=== PATIENT | male | born 1970 | race Caucasian/White ===

== ENCOUNTER 2019-12-16 10:21 | Inpatient (IN) | payer BC, SELFPAY ==
[~2019-12-16] VITALS: Ht 170.2 cm; Wt 97.5 kg
[2019-12-16 10:24] VITALS: Ht 170.2 cm; Wt 97.5 kg
--- NOTE | 2019-12-16 10:48 | NUR ---
PATIENT ARRIVED FROM THE CLINIC VIA AMBULANCE FOR SOB FOR A WEEK. NO COUGHING, TACHYPNEIC AND BREATH SOUNDS CLEAR. PATIENT ARRIVED WITH O2 VIA NC AT 4 LITERS/MIN. O2 SATURATION REMAINS IN THE UPPER 80S, 88 TO 89 PERCENT. O2 UP TO 6 LITER/MIN VIA NC. PATIENT HAS NO BLUISH DISCOLORATION. CONNECTED TO WHITE MIXING OPERATOR.
--- NOTE | 2019-12-16 11:00 | NUR ---
O2 SATURATION UP TO [address] LOPEZ BY BEDSIDE EVALUATING THE PATIENT.
--- NOTE | 2019-12-16 11:51 | NUR ---
PATIENT STILL SHORT OF BREATH, O2 SATURATION IS UP TO 92 PERCENT ON 6 LITERS O2 VIA NC. PATIENT STILL CONVERSES OKAY.
[2019-12-16 12:09] LABS: CALCIUM 8.6 mg/dL (8.5-10.1); CARBON DIOXIDE 26.2 mmol/L (21-32); CHLORIDE SERUM 95 mmol/L (98-107); CREATININE SERUM 1.1 mg/dL (0.7-1.3); GFR1 > 60 mL/min; GLUCOSE SERUM 271 mg/dL (74-106); POTASSIUM SERUM 4.2 mmol/L (3.5-5.1); SODIUM SERUM 131 mmol/L (136-145)
[2019-12-16 12:12] LABS: ALBUMIN 2.1 g/dL (3.4-5.0); ALKALINE PHOSPHATASE 126 U/L (46-116); ALT/SGPT 18 U/L (16-63); AST/SGOT 24 U/L (15-37); BILIRUBIN TOTAL 0.58 mg/dL (0.20-1.00); C REACTIVE PROTEIN 8.3 mg/dL (<=0.9); LACTIC DEHYDROGENASE (LDH) 309 U/L (100-190); TOTAL PROTEIN, SERUM 7.4 g/dL (6.4-8.2)
[2019-12-16 12:30] LABS: RED CELL DISTRIBUTION WIDTH 11.9 % (11.5-14.5)
--- NOTE | 2019-12-16 12:32 | NUR ---
RT CONTACTED AND MADE AWARE OF THE INHALER ORDERED FOR THE PATIENT.
--- NOTE | 2019-12-16 12:46 | NUR ---
AZITHROMYCIN REQUESTED FROM PHARMACY.
[2019-12-16 13:32] LABS: SEGMENTED NEUTROPHILS 78 % (37-75)
[2019-12-16 13:33] LABS: ATYPICAL LYMPH 2 %; BAND NEUTROPHIL 2 % (0-10); MONOCYTE 6 % (0-7); PLATELET MORPHOLOGY LARGE PLATELET SEEN; rbc morphology (normal/abnorm) NORMAL (NORMAL)
[2019-12-16 13:35] LABS: PLATELET COUNT 652 x10^3mcL (130-400)
--- NOTE | 2019-12-16 13:59 | NUR ---
REPORT ATTEMPTED, NURSE KREEN WILL BE READY IN 15 MINUTES.
[2019-12-16 15:59] VITALS: BP 115/85
--- NOTE | 2019-12-16 16:08 | NUR ---
RECEIVED PT FROM ER, PT ADMIT FOR SEVERE HYPOXEMIA, DYHSPNEA. R/O COVID. PT IS A/O X4, VERBAL RESPONSIVE. LUNG SOUND DIM INDY, DENY ANY SOB OR COUGH. PO2 92% ON 7L/MIN O2 VIA NC. PT IS ON TELE 21, NSR, DENY ANY CHEST PAIN OR DISCOMFORT. BOWEL SOUND PRESENT ALL 4 QUADRANTS, NO DISTENTION, NO TENDER, PEDAL PULSE PRESENT BOTH FEET, NO EDEMA, IV AT LEFT WRIST, NO LEAKING, NO INFILTRATION. ALL ADLS ASSIST, ALL NEED MET, CALL LIGHT IN REACH, WILL CONTINUE TO MONITOR.
--- NOTE | 2019-12-16 16:11 | NUR ---
RECIEVED PATIENT FROM RESOURCE NURSE ARASH. PATIENT PRESENTED TO ER WITH CHIEF COMPLAINT OF SHORTNESS OF BREATH AND FATIGUE X 2 WEEKS. PATIENT IS CURRENTLY ON ISOLATION PRECAUTIONS PENDING COVID-19 TEST RESULTS PATIENT IS PUI. LUNG SOUNDS DIMINISHED TO BILATERAL LOWER BASES. TELEMETRY MONITORING IN PLACE. PATIENT IS ON 6.5 LITER NASAL CANNULA SATURATING AT 95%. WILL CONTINUE TO PROVIDE CARE FOR PATIENT.
--- NOTE | 2019-12-16 18:04 | NUR ---
PATIENT SWABBED FOR COVID-19 PER PHYSICIAN ORDER. SPECIMEN SENT TO LAB.
--- NOTE | 2019-12-16 18:09 | NUR ---
PATIENT CURRENTLY AWAKE ALERT AND ORIENTED X 4. PATIENT REMAINS ON ISOLATION PRECAUTIONS PENDING COVID-19 TEST RESULTS. PATIENT SWABBED FOR COVID-19, SPECIMEN SENT TO LAB. NO SIGNS OR SYMPTOMS OF DYSPNEA AT THIS TIME. NO REPORT OF SOB AT THIS TIME. PATIENT REMAINS ON 2.5 LITER NASAL CANNULA AT THIS TIME. IV TO THE LEFT WRIST CURRENTLY SALINE LOCKED. SAFETY PRECAUTIONS IN PLACE. CALL LIGHT WITHIN REACH. WILL ENDORSE ALL FURTHER CARE TO THE NOC NURSE.
--- NOTE | 2019-12-16 19:50 | NUR ---
PT ALERT AND ORIENTED X4, ABLE TO SPEAK IN FULL SENTENCES. RECEIVED PT ON 6L/MIN VIA NASAL CANNULA. CHANGED TO 6L/MIN OXYMIZER, SAO2 93%. PT DENIES ANY CHEST PAIN OR SOB AT REST AT THIS TIME. PIV TO LEFT WRIST INTACT, NO SIGNS OF INFILTRATION. PT VEBALIZED UNDERSTANDING OF PENDING URINE SAMPLE FOR ANALYSIS. TELE 21 NSR. DROPLET PRECAUTIONS MAINTAINED, PENDING COVID TEST RESULTS. WILL CONTINUE TO MONITOR.
[2019-12-16 20:00] VITALS: BP 110/77
--- NOTE | 2019-12-17 00:15 | NUR ---
PT RESTING, IN NO ACUTE DISTRSS, DENIES SOB AT REST. PT DEMONSTRATES CALL LIGHT USE. NO SIGNS/SYMPTOMS OF HYPO-/HYPERGLYCEMIA. SAFETY AND DROPLET PRECAUTIONS IN PLACE. WILL CONTINUE TO MONITOR.
[2019-12-17 02:36] LABS: microscopic required? NO
[2019-12-17 02:43] LABS: urine erythrocyte NEGATIVE (NEGATIVE)
[2019-12-17 04:30] VITALS: BP 112/82
--- NOTE | 2019-12-17 05:31 | NUR ---
I HAVE REVIEWED THE DATA COLLECTION BY BLANE REA: DEAN ARDON ENTERED ON: 12/15 1899- 12/16 I CONCUR WITH THE DATA AND ANY EXCEPTIONS OR COMMENTS ARE LISTED BELOW:
--- NOTE | 2019-12-17 06:38 | NUR ---
PT REMAINED ALERT AND ORIENTED X4. BREATHING REGULAR AND UNLABORED AT REST ON 6L/MIN OXYMIZER SAO2 CURRENTLY 90% PT DENIED ANY DISTRESS OVER NIGHT PIV PATENT, NO ERYTHEMA OR PAIN. PT DENIED ANY CHEST PAIN OR DIZZINESS. PT DEMONSTRATED CALL LIGHT USE AND SAFETY PRECAUTIONS REMAINED IN PLACE. DROPLET PRECAUTIONS MAINTAINED PENDING COVID TEST RESULT. VSS, WILL ENDORSE CARE TO DAY SHIFT RN.
--- NOTE | 2019-12-17 07:56 | NUR ---
RECIEVED REPORT FROM [facility] NURSE. PATIENT IS CURRENTLY ON ISOLATION PRECAUTIONS PENDING COVID-19 TEST RESULTS. PATIENT IS CURRENTLY AWAKE ALERT AND ORIENTED X 4. OXYGEN SUPPLEMENTATION SWITHCED FROM NASAL CANNULA TO 6 LITER OXYMIZER THROUGHT THE NIGHT, PATIENT IS CURRENTLY SATURATING AT 90% ON THE 6 LITER OXYMIZER. NO REPORT OF PAIN AT THIS TIME. NO SIGNS OR SYMPTOMS OF DYSPNEA. SAFETY PRECAUTIONS IN PLACE. CALL LIGHT WITHIN REACH. WILL CONTINUE TO PROVIDE CARE FOR PATIENT.
[2019-12-17 08:13] LABS: BASOPHIL % 0.4 % (0-2); RED CELL DISTRIBUTION WIDTH 12.8 % (11.5-14.5)
--- NOTE | 2019-12-17 08:27 | NUR ---
OXYMIZER INCREASED TO 9 LITER PATIENT IS CURRENTLY SATURATING AT 91% ON 9 LITER OXYMIZER.
[2019-12-17 08:36] LABS: ALKALINE PHOSPHATASE 98 U/L (46-116); ALT/SGPT 18 U/L (16-63); AST/SGOT 30 U/L (15-37); BILIRUBIN TOTAL 0.5 mg/dL (0.20-1.00); CALCIUM 8.6 mg/dL (8.5-10.1); CARBON DIOXIDE 30.6 mmol/L (21-32); CHLORIDE SERUM 95 mmol/L (98-107); GFR1 > 60 mL/min; GLUCOSE SERUM 160 mg/dL (74-106); POTASSIUM SERUM 4.1 mmol/L (3.5-5.1); SODIUM SERUM 131 mmol/L (136-145); TOTAL PROTEIN, SERUM 7.1 g/dL (6.4-8.2)
[2019-12-17 08:52] VITALS: BP 116/81
[2019-12-17 11:24] LABS: PLATELET COUNT 614 x10^3mcL (130-400)
[2019-12-17 12:57] VITALS: BP 117/81
[2019-12-17 16:30] VITALS: BP 97/63
--- NOTE | 2019-12-17 17:26 | NUR ---
PATIENT IS CURRENTLY AWAKE ALERT AND ORIENTED X 4. PATIENT IS CURRENTLY ON ISOLATION PRECAUTIONS. COVID-19 TEST RESULTS CAME BACK POSITIVE TODAY. PATIENT IS ON 9 LITER OXYMIZER SATURATING AT 90%. CURRENTLY PENDING CONSULT WITH ID. NO REPORT OF PAIN AT THIS TIME. AFEBRILE THROUGHOUT SHIFT. NO REPORT OF SOB AT THIS TIME. CONTINOUS PULSE OXYMETRY IN PLACE. SAFETY PRECAUTIONS IN PLACE. CALL LIGHT WITHINR REACH. WILL ENDORSE ALL FURTHER CARE TO THE NOC NURSE.
--- NOTE | 2019-12-17 19:34 | NUR ---
SPOKE TO DR. OLIVARES VIA PHONE. MADE AWARE OF PT'S BP 93/46, MAP 62, HR 82. PT DENIES ANY DIZZINESS. REC'D ORDER FOR NS @ 100 ML/HR. ALSO STATED TO CONTACT HIM IF SBP <90.
--- NOTE | 2019-12-17 20:00 | NUR ---
REC'D PT FROM DAY NURSE. PT RESTING IN BED. AAOX4, SPEECH CLEAR, FOLLOWS COMMANDS. TELE 21. DENIES CP, DIZZINESS, OR PALPITATIONS. DENIES RESP DISTRESS OR SOB. BREATHING EVEN/UNLABORED ON 9L OXYMIZER, SPO2 93%. NO EDEMA NOTED. ABD SOFT/ROUND. DENIES ABD PAIN, TENDERNESS, OR N/V. VOIDING FREELY. USUALLY SELF AMBULATORY. GEN WEAKNESS. IV TO LH FLUSHED AND PATENT, SITE WNL. CALL LIGHT WITHIN REACH, BED AT LOWEST POSITION. WILL CONTINUE TO MONITOR.
[2019-12-17 20:40] VITALS: BP 95/70
--- NOTE | 2019-12-18 00:19 | NUR ---
PT RESTING IN BED WITH EYES CLOSED. NO SIGNS OF DISTRESS OR PAIN NOTED. BREATHING EVEN/UNLABORED ON 9L OXYMIZER. SPO2 94%. CALL LIGHT WITHIN REACH, BED AT LOWEST POSITION. WILL CONTINUE TO MONITOR.
[2019-12-18 05:00] VITALS: BP 104/73
--- NOTE | 2019-12-18 05:45 | NUR ---
PT AWAKE AND RESTING IN BED. BREATHING EVEN/UNLABORED ON 9L OXYMIZER, SPO2 95%. DENIES ANY SOB. DECREASED O2 TO 7L, SPO2 93%. NO SIGNIFICANT CHANGES DURING SHIFT. CALL LIGHT WITHIN REACH, BED AT LOWEST POSITION. WILL CONTINUE TO MONITOR.
[2019-12-18 08:41] VITALS: BP 100/65
[2019-12-18 08:42] LABS: ALKALINE PHOSPHATASE 99 U/L (46-116); ALT/SGPT 19 U/L (16-63); AST/SGOT 28 U/L (15-37); BILIRUBIN TOTAL 0.4 mg/dL (0.20-1.00); CALCIUM 8.8 mg/dL (8.5-10.1); CARBON DIOXIDE 30.8 mmol/L (21-32); CHLORIDE SERUM 97 mmol/L (98-107); GFR1 > 60 mL/min; GLUCOSE SERUM 196 mg/dL (74-106); SODIUM SERUM 131 mmol/L (136-145); TOTAL PROTEIN, SERUM 6.8 g/dL (6.4-8.2)
[2019-12-18 08:52] LABS: BASOPHIL % 0.3 % (0-2); RED CELL DISTRIBUTION WIDTH 12.5 % (11.5-14.5)
--- NOTE | 2019-12-18 09:25 | NUR ---
DR. DIETRICH AT THE BEDSIDE. GOAL TO WEAN PT DOWN TO 3-4 L AND PT MAY GO HOME WITH O2. SPO2 94% ON 7L OXYMIZER. REDUCED O2 TO 4L, SPO2 91-92%.
[2019-12-18 09:57] LABS: ALBUMIN 2.1 g/dL (3.4-5.0)
[2019-12-18 10:31] LABS: PLATELET COUNT 565 x10^3mcL (130-400)
--- NOTE | 2019-12-18 12:31 | NUR ---
PT REMAINS ON 4L OXYMIZER. CURRENT SPO2 94-95%. DENIES ANY SOB. BREATHING EVEN/UNLABORED. WILL CONTINUE TO MONITOR.
[2019-12-18 12:52] VITALS: BP 110/79
--- NOTE | 2019-12-18 13:19 | NUR ---
REPORT GIVEN TO ARASH ARGUELLES TO RESUME CARE.
[2019-12-18 17:05] VITALS: BP 112/69
--- NOTE | 2019-12-18 17:59 | NUR ---
PT IS A/O X4, NO RESPIRATORY DISTRESSED, SWITCH OXYMIZER TO NASAL CANNULA AT 4L/MIN O2. PT MAINTAIN O2 BETWEEN 90% TO 93%, PT TOLERATED WELL, DENY ANY CHEST PAIN OR DISCOMFORT, ALL ADLS ASSIST, ALL NEED MET, CALL LIGHT IN REACH, WILL CONTINUE TO MONITOR.
[2019-12-18 20:15] VITALS: BP 100/67
--- NOTE | 2019-12-18 20:21 | NUR ---
REPORT FROM DAY RN. MAURICIO RN. PT AXOX4. NO S/S OF DISTRESS OR DISCOMFORT.PT BREATHING EVEN AND UNLABORED ON 4L NC 93%.SPO2. DIM AT THE BASES, CLEAR UPPER LOBES. GENERAL WEAKNESS. LH IV SL NO S/S OF INFILTRATION. TELE 21 NSR. ACTIVE BOWELS, ROUND SOFT, NON TENDER DENIES ABD PAIN. STRONG PEDAL AND RADIAL PULSES. ISO FOR COVID19 DROPLET AND CONTACT PREACAUTIONS. BED IN LOW POSITION, SIDE RAILS UP X2, CALL LIGHT WITHIN REACH, ROOM CLUTTER FREE.
--- NOTE | 2019-12-18 23:00 | NUR ---
REC'D REPORT FROM FERNANDO ARGUELLES. PT RESTING IN BED. BREATHING EVEN/UNLABORED ON 4L NC, SPO2 94%. NO COMPLAINTS AT THIS TIME. CALL LIGHT WITHIN REACH, BED AT LOWEST POSITION. WILL CONTINUE TO MONITOR.
--- NOTE | 2019-12-19 01:51 | NUR ---
PT RESTING IN BED WITH EYES CLOSED. SPO2 92% ON 4L NC. NO SIGNS OF DISTRESS OR PAIN NOTED. BREATHING EVEN/UNLABORED. WILL CONTINUE TO MONITOR.
[2019-12-19 05:11] VITALS: BP 97/68
--- NOTE | 2019-12-19 06:27 | NUR ---
PT RESTING IN BED WITH EYES CLOSED. AWAKENS WITH VERBAL STIMULI. BREATHING EVEN/UNLABORED ON 4L NC, SPO2 91%. NO COMPLAINTS AT THIS TIME. NO SIGNIFICANT CHANGES DURING SHIFT. CALL LIGHT WITHIN REACH, BED AT LOWEST POSITION. WILL ENDORSE TO DAY NURSE.
[2019-12-19 07:17] LABS: BASOPHIL % 0.6 % (0-2)
[2019-12-19 07:58] LABS: ALKALINE PHOSPHATASE 101 U/L (46-116); ALT/SGPT 18 U/L (16-63); AST/SGOT 29 U/L (15-37); BILIRUBIN TOTAL 0.4 mg/dL (0.20-1.00); CALCIUM 9.1 mg/dL (8.5-10.1); CARBON DIOXIDE 31.9 mmol/L (21-32); CHLORIDE SERUM 98 mmol/L (98-107); CREATININE SERUM 1.1 mg/dL (0.7-1.3); GFR1 > 60 mL/min; GLUCOSE SERUM 127 mg/dL (74-106); POTASSIUM SERUM 4.4 mmol/L (3.5-5.1); SODIUM SERUM 136 mmol/L (136-145)
[2019-12-19 07:59] LABS: ALBUMIN 2.3 g/dL (3.4-5.0)
[2019-12-19 08:30] VITALS: BP 114/77
[2019-12-19 08:49] LABS: PLATELET COUNT 565 x10^3mcL (130-400)
--- NOTE | 2019-12-19 09:50 | NUR ---
RECEIVED IN NO ACUUTE RESP. DISTRESS. RECEIVED ON O2 4L N/C SATS 92%. NO SOB NOTED AT THIS TIME. VS WNL. HL PATENT. NO C/O PAIN OR DISCOMFORT. CALL LIGHT WITHIN REACH. WILL CONTINUE WITH PLAN OF CARE.
--- NOTE | 2019-12-19 10:18 | NUR ---
RECEIVED A CALL FROM WITH NEW ORDER HOME O2 EVAL.
[2019-12-19 12:45] VITALS: BP 117/85
[2019-12-19 17:25] VITALS: BP 108/73
--- NOTE | 2019-12-19 18:53 | NUR ---
REMAINS IN NO ACUTE DISTRESS, AWAKE AND ALERT. NO C/O PAIN OR DISCOMFORT AT THIS TIME. O2 SATS 91-93% IN 4L N/C. MILD SOB WITH ACTIVITIES NOTED.VS WNL. HL PATENT. WILL BE ENDORSED TO INCOMING SHIFT.
--- NOTE | 2019-12-19 20:51 | NUR ---
PT RECIEVED AAO REG RESP NO SOB ON 4L N/C SAT 96%,HOB,ABDO IS SOFT WITH ACTIVE BOWEL SOUNDS,PT ON TELE MONITOR AND IN NSR NO ECTOPY OR CHEST PAIN AT THIS TIME,BED IN THE LOW POSITION AND LOCKED AND WILL CONTINUE TO MONITOR.
[2019-12-19 21:42] VITALS: BP 100/68
--- NOTE | 2019-12-20 00:59 | NUR ---
PT SLEEPING SOUNDLY AND WILL CONTINUE TO MONITOR.
[2019-12-20 05:53] VITALS: BP 104/74
--- NOTE | 2019-12-20 06:25 | NUR ---
PT HAD A RESTING NIGHT NO CHANGE AT THIS TIME AND WILL CONTINUE TO MONITOR.
--- NOTE | 2019-12-20 07:26 | NUR ---
RECEIVED AWAKE, ALERT AND ORIENTED. ON O2 4L N/C SATS 92%,NO ACUTE DISTRESS NOTED. VS WNL. HL PATENT. NO C/O PAIN OR DISCOMFORT AT THIS TIME. CALL LIGHT WITHIN REACH. WILL CONTINUE WITH PLAN OF CARE.
[2019-12-20 07:28] LABS: ALBUMIN 2.4 g/dL (3.4-5.0); ALKALINE PHOSPHATASE 97 U/L (46-116); ALT/SGPT 19 U/L (16-63); AST/SGOT 25 U/L (15-37); BILIRUBIN TOTAL 0.4 mg/dL (0.20-1.00); CALCIUM 9.2 mg/dL (8.5-10.1); CARBON DIOXIDE 33.1 mmol/L (21-32); CHLORIDE SERUM 100 mmol/L (98-107); CREATININE SERUM 1.1 mg/dL (0.7-1.3); GFR1 > 60 mL/min; GLUCOSE SERUM 139 mg/dL (74-106); POTASSIUM SERUM 4.1 mmol/L (3.5-5.1); SODIUM SERUM 137 mmol/L (136-145); TOTAL PROTEIN, SERUM 7.1 g/dL (6.4-8.2)
[2019-12-20 07:48] LABS: BASOPHIL % 0.6 % (0-2); RED CELL DISTRIBUTION WIDTH 13.1 % (11.5-14.5)
[2019-12-20 07:52] VITALS: BP 105/74
[2019-12-20] MEDS ORDERED: DECADRON4 MG PO (09:22)
[2019-12-20] MEDS ORDERED: ELIQUIS5 MG PO (09:22)
[2019-12-20 11:30] LABS: PLATELET COUNT 531 x10^3mcL (130-400)
[2019-12-20 12:09] VITALS: BP 111/78
--- NOTE | 2019-12-20 14:57 | NUR ---
RESTING AT THIS TIME. NO ACUTE DISTRESS NOTED.
[2019-12-20 16:23] VITALS: BP 109/74
[2019-12-20 17:38] VITALS: BP 109/74
--- NOTE | 2019-12-20 18:20 | NUR ---
PT WILL BE DC'D HOME THIS PM, O2 TANK AND PORTABLE CONCENTRATOR DELIVERED TO ROOM. DC INSTRUCTIONS REVIEWED WITH PT AND RX GIVEN. HL REMOVED AND SITE CLEAR. NO C/O PAIN OR DISCOMFORT AT THIS TIME. PT IS WAITING FOR RIDE HOME.
--- NOTE | 2019-12-20 19:41 | NUR ---
DC'D HOME IN NO ACUTE DISTRESS, AWAKE AND ALERT. NO CHANGES IN VS. NO C/O PAIN OR DISCOMFORT. PERSONAL BELONGINGS TAKEN HOME.
== END 2019-12-20 19:28 | disposition home or self-care (01) | DRG 177 ==
LOC: ED 10:21 → DU 13:03
PROVIDERS: Emergency Medicine; ADMIT Internal Medicine Pulmonary Disease; ATTEND Internal Medicine Pulmonary Disease
DX: U07.1 COVID-19 (principal); J12.89 Other viral pneumonia; J96.01 Acute respiratory failure with hypoxia; E11.65 Type 2 diabetes mellitus with hyperglycemia; E03.9 Hypothyroidism, unspecified; E66.9 Obesity, unspecified; R53.83 Other fatigue; Z88.0 Allergy status to penicillin; Z68.30 Body mass index [BMI] 30.0-30.9, adult; Z79.899 Other long term (current) drug therapy; Z79.4 Long term (current) use of insulin; Z79.01 Long term (current) use of anticoagulants
CPT/HCPCS: 36600; 82962; 83880; 87804; G0378; J1100; J1650; J1815; J1940; J1956; J3475; J7040; Q0092; U0003-CS